=== PATIENT | male | born 1960 | race American Indian/Alaskan Native ===

== ENCOUNTER 2021-04-29 09:36 | Outpatient (CLI) | payer OTHER ==
--- NOTE | 2021-04-29 10:14 | XRay Report ---
LEFT KNEE 3 VIEW(S) INDICATION / CLINICAL INFORMATION: LEFT KNEE PAIN COMPARISON: None available. FINDINGS: BONES / JOINT(S): No acute fracture or dislocation. 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 No significant joint effusion. Degenerative enthesopathic changes of the perry lar tendon at tibial tuberosity insertion. SOFT TISSUES: No significant abnormality. ADDITIONAL FINDINGS: None. Signer Name: Bryn Barreto MD Signed: 04/29/2021 10:10 AM Workstation Name: [email or web address]
== END 2021-04-29 09:37 | disposition home or self-care (01) ==
LOC: XRAY 09:36
PROVIDERS: ATTEND Internal Medicine
DX: M17.12 Unilateral primary osteoarthritis, left knee (principal)